=== PATIENT | female | born 1955 | race Caucasian/White ===

== ENCOUNTER 2017-01-31 06:25 | Day surgery (SDC) | payer MEDICARE, OTHER ==
--- NOTE | ~2017-01-31 | EGD ---
EGD REPORT [facility] [address] [place] [address] NAME: MARICRUZ HUFF : [birth year] STATUS : REG [facility]#: [id number] AGE: 61 ADM/REG DATE : 01/31/17 MR#: [id number] REPORT SERV DATE: 01/31/17 DICTATED BY: DATE: REPORT STATUS : Draft TRANSCRIBED BY: [employer] DATE: 01/31/17 [facility] Center Patient Name: Maricruz Huff Date of : 1955 Attending MD: BLANE SLOAN MD Procedure Date No Time: 01/31/2017 Procedure: Upper GI endoscopy Indications: Portal hypertension with suspected esophageal varices; FAY cirrhosis; propranolol; Prilosec 20mg bid. Patient Profile: Informed consent was obtained from the patient by me prior to the procedure. Risks, benefits, and alternatives were discussed including the risk of bleeding, perforation, infection, reaction to medicine, missed lesion, and cardiopulmonary complications. Referring MD: CONI ROSA Medicines: Monitored Anesthesia Care Complications: No immediate complications. Procedure: After obtaining informed consent, the endoscope was passed under direct vision. Throughout the procedure, the patient's blood pressure, pulse, and oxygen saturations were monitored continuously. The GIF [id number] was introduced through the mouth, and advanced to the second part of duodenum. The endoscope was withdrawn with careful examination all mucosal surfaces including retroflexion stomach. The upper GI endoscopy was accomplished without difficulty. The patient tolerated the procedure well. Findings: The examined duodenum was normal. The entire examined stomach was normal. Grade I varices were found in the lower third of the esophagus, no stigmata. Impression: - Normal examined duodenum. - Normal stomach. - Grade I esophageal varices. Recommendation: - Patient has a contact number available for emergencies. The signs and symptoms of potential delayed complications were discussed with the patient. Return to normal activities tomorrow. Written discharge instructions were provided to the patient. - Regular diet. - Continue present medications. EGD REPORT [facility] [place] [id number] [facility] [place]. [address] NAME: MARICRUZ HUFF : [birth year] STATUS : REG [facility]#: [id number] AGE: 61 ADM/REG DATE : 01/31/17 MR#: [id number] REPORT SERV DATE: 01/31/17 DICTATED BY: DATE: REPORT STATUS : Draft TRANSCRIBED BY: [employer] DATE: 01/31/17 - Repeat the upper endoscopy in 1 year for surveillance--[facility]. - Recent viral illness; she is improving and [facility] if not better in one week or so. Procedure Code(s): --- Professional --- 84587, Esophagogastroduodenoscopy, flexible, transoral; diagnostic, including collection of specimen(s) by brushing or washing, when performed (separate procedure) Diagnosis Code(s): --- Professional --- I85.10, Secondary esophageal varices without bleeding K76.6, Portal hypertension CPT copyright 2013 [employer]. All rights reserved. The codes documented in this report are preliminary and upon security systems administrator review may be revised to meet current compliance requirements. BLANE SLOAN MD 01/31/2017 8:10 AM This report has been signed electronically. Number of Addenda: 0 Note Initiated On: 01/31/2017 7:55 AM Scope Withdrawal Time 0 hours 0 minutes 0 seconds [id number] [place] [address]
[~2017-01-31 06:25] MED LIST: ALLEGRA180 PO; B 12; BENTYL10 PO; CELEXA20 PO; CENTRUM TAB1 TAB PO; CO-Q-10 PO; CONSTULOSE PO; COQ10100 MG OR; CRESTOR10 PO; DEMA20 PO; FISH-EPA1000 MG PO; GLUCPH PO; GLUCPH8 PO; HYDROCHLOROT12.5 MG PO; I10 PO; KLONO1 PO; KLONO5 PO; KLOR-CON 1010 MEQ PO; LIPITOR10 PO; LORT7 PO; LORTAB10 PO; MAG6464 MG PO; MILK THISTLE; MILK THISTLE PO; MIRAPEX250 PO; NEXIUM40 PO; NORCO1 TAB PO; NTG150 SL; OXYCON10 PO; PHENADOZ25 MG RE; PRAVAC PO; PRILO PO; PROZ10 PO; PROZAC PO; SPIRO25 PO; SUCR PO; SYN1 PO; VASOTEC20 MG PO; VITE PO; WELLBUTRIN200 MG PO; XANAX1 MG PO; ZOFRAN ODT4 MG PO; ZOFRAN8 PO
[2017-01-31 07:22] LABS: HEMATOCRIT 39.6 % (36.0-48.0); HEMOGLOBIN 13.2 g/dL (12.0-16.0); MANUAL DIFF YES %; MEAN CORPUS HGB CONC 33.3 g/dL (32.0-36.0); MEAN CORPUSCULAR HEMOGLOB 29.1 pg (26.0-34.0); MEAN CORPUSCULAR VOLUME 87.2 fL (80-100); MEAN PLATELET VOLUME 9.1 fL (9.2-13.0); PLATELET COUNT 164 10/3/uL (150-400); RBC DISTRIBUTION WIDTH 17.4 % (12.0-16.0); RED CELL COUNT 4.54 10/6/uL (4.0-5.6); WHITE BLOOD CELLS 6.2 10/3/uL (4.5-10.5)
[2017-01-31 07:43] LABS: BUN (BLOOD UREA NITROGEN) 6 MG/DL (6-23); CALCIUM, SERUM 8.5 MG/DL (8.5-10.4); CHLORIDE, SERUM 102 MMOL/L (96-112); CO2 (CARBON DIOXIDE) 25 MMOL/L (24-34); CREATININE 0.55 MG/DL (0.55-1.02); GFR AFRICAN AMERICAN 119 ML/MIN (>=60); GFR NON AFRICAN AMERICAN 103 ML/MIN (>=60); GLUCOSE, SERUM 85 MG/DL (60-99); POTASSIUM, SERUM 3.4 MMOL/L (3.5-5.3); SODIUM, SERUM 138 MMOL/L (135-148)
[2017-01-31 08:37] LABS: BAND NEUTROPHILS 3 %; LYMPHOCYTES 31 %; LYMPHOCYTES ABSOLUTE (CALC) 1.92 10/3/uL (0.67-4.30); MONOCYTES 12 %; MONOCYTES ABSOLUTE (CALC) 0.74 10/3/uL (0.21-1.20); NEUTROPHILS ABSOLUTE (CALC) 3.53 10/3/uL (2.02-8.40); SEGMENTED NEUTROPHIL (0) 54 %; TOTAL NUCLEATED CELLS 100
[2017-01-31 08:38] LABS: ANISOCYTOSIS 1+ (5-10/OIF) (0-5/OIF); PLATELET ESTIMATE ADQ (ADEQUATE)
== END 2017-01-31 23:59 | disposition home or self-care (01) ==
LOC: DMU 06:25
PROVIDERS: Anesthesiology; Internal Medicine Gastroenterology
PROC: 0DJ08ZZ Inspection of Upper Intestinal Tract, Via Natural or Artificial Opening Endoscopic (ICD-10-PCS; principal; 2017-01-31 07:30)
DX: I85.10 Secondary esophageal varices without bleeding (principal); I10 Essential (primary) hypertension; G47.33 Obstructive sleep apnea (adult) (pediatric); K21.9 Gastro-esophageal reflux disease without esophagitis; E11.9 Type 2 diabetes mellitus without complications; F31.9 Bipolar disorder, unspecified; K76.6 Portal hypertension; K74.60 Unspecified cirrhosis of liver; M19.90 Unspecified osteoarthritis, unspecified site; F41.9 Anxiety disorder, unspecified; K44.9 Diaphragmatic hernia without obstruction or gangrene; E78.00 Pure hypercholesterolemia, unspecified; Z90.49 Acquired absence of other specified parts of digestive tract; Z90.710 Acquired absence of both cervix and uterus; Z96.653 Presence of artificial knee joint, bilateral; Z98.890 Other specified postprocedural states
CPT/HCPCS: 80048; 85025